=== PATIENT | female | born 1960 | race Asian ===

== ENCOUNTER 2025-10-23 22:04 | Inpatient (IN) | payer MEDICAID ==
[~2025-10-23] VITALS: Ht 152.4 cm; Wt 56.0 kg
[2025-10-23] MEDS: normal saline 1000ml 1,000 ML IV ONE ×2 (22:20→23:36)
[2025-10-23] MEDS: morphine 4 MG/ML inj SYRINge IV ONE (22:20)
[2025-10-23] MEDS: normal saline 1000ML IV soln IVB ONE ×3 (22:31→23:33)
--- NOTE | 2025-10-23 22:34 | ELECTROCARDIOGRAPH REPORT ---
[facility] Test Date: 2025-10-23 Test Time: 22:31:07 Pat Name: ALFREDO CORREA Department: [facility]- Patient ID: [facility]-[id number] Room: Gender: F Special Certificate Dictator: RACHEAL : 1960 Requested By: LUKAS HDEZ Order Number: [id number] Reading MD: Dr. Lukas Hdez Measurements Intervals [place] Rate: 69 P: 0 MS: 0 QRS: 59 QRSD: 89 T: 71 QT: 490 QTc: 525 Interpretive Statements Atrial fibrillation RSR' in V1 or V2, probably normal variant Nonspecific T abnrm, anterolateral leads Baseline wander in lead(s) V1 Electronically Signed On 10-24-2025 0:11:[address] Lukas Hdez Please click the below link to view image of tracing.
[2025-10-23 22:37] LABS: MEAN PLATELET VOLUME 9.7 FL (7.4-10.4); RED CELL DISTRIBUTION WIDTH 14.2 % (11.5-14.5)
[2025-10-23 22:38] LABS: APTT 22 SECONDS (22-32); INR 1.0 INR
[2025-10-23 22:40] LABS: CREATININE 1.24 MG/DL (0.40-0.90); TOTAL CARBON DIOXIDE 23.5 MMOL/L (24-32); eCRCL 33 ML/MIN; eGFR 44 ML/MIN
[2025-10-23 22:48] LABS: PRO BRAIN NATRIURETIC PEPTIDE < 30 PG/ML (0-125)
[2025-10-23] MEDS: pantoprazole 40MG/NS 100ML BAG 100 ML IV ONE (22:50)
[2025-10-23] MEDS ORDERED: pantoprazole 40mg IV 80 MG in normal saline 100ml IV soln 100 ML IV ONE (22:55)
--- NOTE | 2025-10-23 23:03 | RADIOLOGY REPORT ---
EXAM: DI CHEST,SINGLE VIEW CLINICAL HISTORY: CP TECHNIQUE: Single AP view of the chest WID: COMPARISON: None FINDINGS: Lines and tubes: None Chest: Mild cardiomegaly with mild prominence of the central pulmonary vasculature. Calcified plaque projects Over the aortic arch. No pleural effusion, pneumothorax, or consolidation. The osseous structures are grossly intact. Mild multilevel thoracic spondylosis. IMPRESSION: 1. Mild cardiomegaly with mild prominence of the central pulmonary vasculature.
[2025-10-23 23:04] LABS: LYMPHOCYTES % (MANUAL) 44.0 % (21-51); MONOCYTES % (MANUAL) 7.0 % (2-12); NEUTROPHILS % (MANUAL) 49.0 % (42-75); PLATELET ESTIMATE NORMAL
[2025-10-23] MEDS: piperacillin/tazo 3.375gm/50ml 50 ML IV ONE (23:36)
--- NOTE | 2025-10-23 23:51 | ELECTROCARDIOGRAPH REPORT ---
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 Lukas Hdez Measurements Intervals [place] Rate: 67 P: 62 MO: 66 QRS: 54 QRSD: 81 T: 105 QT: 407 QTc: 430 Interpretive Statements STEMI Electronically Signed On 10-24-2025 0:11:[address] Lukas Hdez Please click the below link to view image of tracing.
[2025-10-23] MEDS ORDERED: heparin 10,000 units/1 ML INJ IV PRN (23:55)
[2025-10-24] VITALS (16 sets, daily range): BP systolic 95–145; BP diastolic 39–67; PULSE 61–78; RESP 10–22; TEMP 97.4–98.6; O2SAT 95–100
[2025-10-24] MEDS: heparin 10,000 units/1 ML INJ IV ONE ×2 (00:03→00:10)
--- NOTE | 2025-10-24 00:06 | RADIOLOGY REPORT ---
Procedure: CT CTA AORTA DISECTION W/ IV CONTRAST HISTORY: abdominal pain, OK, Comparison Study: None Exam Date:10/23/2025 11:08 PM TECHNIQUE: CTA scanner volumetric data acquisition of abdomen and pelvis was obtained following intravenous administration of intravenous contrast without any reported adverse effects. Axial images were reconstructed and additional sagittal and coronal images were reformatted. arterial phase imaging were performed. Postprocessing was also performed on a Separate workstation. 3D images were performed on a dedicated workstation and reviewed for reporting. Radiation Dose : CT Dose: CTDI volume is 21.67 mGy. Dose-length product is 1465.44 mGy*cm FINDINGS: VASCULAR FINDINGS Thoracic and abdominal aorta normal in diameter. no aneurysm. no dissection. moderate aortoiliac vascular calcifications. No clinically significant pulmonary embolus. Mesenteric vessel origins are widely patent. NONVASCULAR FINDINGS Mild multichamber cardiac enlargement. Coronary calcifications. No pleural or pericardial effusion. No adenopathy. Liver, spleen, pancreas, adrenal glands, and kidneys are unremarkable. Equivocal mild thickening of the descending and sigmoid colon. IMPRESSION: No acute aortic pathology. Suspected mild colitis of the descending and sigmoid colon. No ischemic changes.
[2025-10-24] MEDS: heparin 25,000 UNIT/250ml bag 250 ML IV PRN (00:13)
[2025-10-24] MEDS: MESSAGE TO NURSING IV ONE (00:15)
[2025-10-24] MEDS ORDERED: LIDOcaine 1% 30ml preserv. free vial ONE (00:21)
[2025-10-24] MEDS ORDERED: fentaNYL/PF 50MCG/1 ML 2ML syringe ONE (00:21)
[2025-10-24] MEDS ORDERED: midazolam 1 mg/ML 2ml injection ONE (00:21)
[2025-10-24] MEDS ORDERED: iohexol 350 MG/ML 50ML vial IV ONE ×2 (00:22→01:29)
[2025-10-24] MEDS ORDERED: tirofiban 12.5mg in NS 250mL 250 ML IV ONE (00:22)
--- NOTE | 2025-10-24 00:23 | Physician Documentation ---
History of Present Illness ~ Chief Complaint: Chest Pain Stated Complaint: DIZZINESS Time Seen by MD: 22:18 OK to notify your PCP?: Yes Source: patient, family, RN/MD, RN notes reviewed, old records Mode of Arrival: POV Exam Limitations: no limitations HPI This patient history obtained by who is communicating and translating for her. She apparently at 7:00 p.m. had a sudden change in behavior she was doing perfectly fine prior. Afterwards she became a bit diaphoretic complaining of stomach pain radiating to her neck and jaw felt heavy and numb. Be patient did not get better family finally decided to come in where she arrives pale diaphoretic trouble maintaining her posture with no new complaints no shortness of breath no palpitations no chest pain. Patient was immediately brought into bed two where she was resuscitated. The patient presents with bradycardia and hypotension looks ill no other information is obtained Day of Onset: Oct 24, 2025 Medication Reconciliation Allergies: Coded Allergies: No Known Allergies (Unverified , 10/23/25) Past Medical History Past Medical History: Hypertension, Gastritis Past Surgical History: no surgical history Smoking Status: Never smoker Alcohol Use: None Drug Use: none Review of Systems All Other Systems at this time: Reviewed and Negative Physical Exam Vital Signs: RN Vital Signs have been reviewed: Yes, Temperature: 96.4, Source: Axillary, Heart Rate: 87, Respiratory Rate: 27, BP: 107/87, Pulse Oximetry: 98, Weight: 56.000 Oxygen Flow Rate: 2.0 Physical Exam General: The patient is well developed, well nourished, ill appearing and is in moderate acute distress. Pale diaphoretic Skin: [place], warm and dry with no rashes. HEENT: Head was normocephalic and atraumatic. Eyes - pupils equal, round, reactive to light and accommodation. Extraocular movements were intact. Conjunctivae were nonicteric. The mouth and oropharynx were clear with moist m ucous membranes. There were no pharyngeal exudates or erythema. Neck: Supple and nontender. There was no jugular venous distention, lymphadenopathy, thyromegaly or masses. Chest: Clear to auscultation bilaterally without wheezes, rales or rhonchi. No accessory muscle use. No dullness to percussion. Mottled skin Heart: Rate regular bradycardic and rhythmic. S1, S2. No murmurs. Palpation of the chest wall was normal. No rubs or thrills. Abdomen: Soft, diffusely tender and slightly distended. Positive bowel sounds. No guarding or rebound. No hepatosplenomegaly or palpable masses. Mottled skin Extremities: No cyanosis, clubbing or edema. The patient moves all extremities. Pulses were equal and symmetric. Mottled extremities weak palpabl e pulses Neurologic: Motor sensory grossly intact Psychologic: The patient was oriented to person, place and time. The patient demonstrated appropriate judgement and insight. Progress Results/Orders Reviewed/noted all lab results: Yes Results/Orders Orders - ELBERT HALLMAN MD Chest,Single View (10/23/25 22:27) Monitor (10/23/25 22:13) Saline Lock (10/23/25 22:13) Oxygen (10/23/25 22:13) Electrocardiogram (10/23/25 22:13) Hs Troponin I W Calculations (10/24/25 00:13) Hs Troponin I W Calculations (10/24/25 01:13) Type And Screen (10/23/25 22:18) Electrocardiogram (10/23/25 22:18) Normal Saline 1000ml (0.9% Sodium Chlori (10/23/25 22:20) Gastrocult Set Up (10/23/25 22:38) Hemocult Set Up (10/23/25 22:38) Pantoprazole 40mg/Ns 100ml Bag (Protonix (10/23/25 22:40) Culture Blood (10/23/25 22:49) Lrpc - Active Bleeding (10/23/25 22:51) Cta Aorta Disection (10/23/25 22:52) Normal Saline 1000ml (0.9% Sodium Chlori (10/23/25 23:15) Heparin 25,000 Unit/250ml Bag (Heparin 2 (10/23/25 23:55) Heparin 10,000 Unit/Ml 1ml (Heparin 10,0 (10/23/25 23:55) Page Hospitalist (10/24/25 00:12) Fill Out Med Reconciliation (10/24/25 00:12) Cardiac Ptt (10/24/25 06:30) Cbc/Diff (10/24/25 00:14) CMP (10/24/25 00:14) LA (10/24/25 00:14) Completed Orders - ELBERT HALLMAN MD Chest,Single View (10/23/25 22:27) Cbc/Diff (10/23/25 22:13) BMP (10/23/25 22:13) PBNP (10/23/25 22:13) Electrocardiogram (10/23/25 22:13) Hs Troponin I W Calculations (10/23/25 22:13) Pt Inr (10/23/25 22:18) PTT (10/23/25 22:18) Electrocardiogram (10/23/25 22:18) Aspirin 81mg Chew Tablet (Aspirin 81mg C (10/23/25 22:20) Morphine 4mg/Ml Inj. (Morphine Inj.) (10/23/25 22:20) Nitroglycerin 0.2mg/Hour Patch (Nitro-Du (10/23/25 22:20) Normal Saline 1000ml (0.9% Sodium Chlori (10/23/25 22:20) ESR (10/23/25 22:23) Liver Panel (10/23/25 22:18) MG (10/23/25 22:18) C-Reactive Protein (10/23/25 22:18) Normal Saline 1000ml (0.9% Sodium Chlori (10/23/25 22:40) Man Diff (10/23/25 22:18) Procalcitonin (10/23/25 22:49) Lacticsepsis (10/23/25 22:49) Lipase (10/23/25 22:18) Cta Aorta Disection (10/23/25 22:52) Pantoprazole 40mg Iv (Protonix 40mg Iv) (10/23/25 23:05) Piperacillin/Tazo 3.375gm/50ml (Zosyn 3. (10/23/25 23:15) Normal Saline 1000ml (0.9% Sodium Chlori (10/23/25 23:15) Heparin 10,000 Unit/Ml 1ml (Heparin 10,0 (10/23/25 23:55) Heparin 10,000 Unit/Ml 1ml (Heparin 10,0 (10/24/25 00:10) Message To Nursing (10/24/25 00:15) Lidocaine 1% 30ml Vial (Xylocaine 1% Via (10/24/25 00:21) Fentanyl/Pf (Fentanyl 0.05 Mg/Ml Syringe (10/24/25 00:21) Midazolam 1 Mg/Ml 2ml Inj. (Versed 1 Mg/ (10/24/25 00:21) Iohexol 350mg/Ml 50ml Inj (Omnipaque 350 (10/24/25 00:22) Iohexol 350mg/Ml 100ml (Omnipaque 350mg/ (10/24/25 00:22) Heparin 1,000 Units/Ns 500ml (Heparin 1, (10/24/25 00:22) Tirofiban 12.5mg In Ns 250ml (Aggrastat (10/24/25 00:22) Medications Received in ER Medications (Trade) Dose Ordered Sig/Jessica Route PRN Reason Start Time Stop Time Status Last Admin Dose Admin (aspirin 81MG chew tablet) 324 mg ONCE ONCE PO 10/23/25 22:20 10/23/25 22:21 DC 10/23/25 22:37 324 MG (0.9% sodium chloride (NS) 1000ml IV soln) 500 ml ONCE ONCE IVB 10/23/25 22:20 10/23/25 22:21 DC 10/23/25 22:31 500 ML (0.9% sodium chloride (NS) 1000ml IV soln) 1,000 ml ONCE ONCE IVB 10/23/25 22:40 10/23/25 22:48 DC 10/23/25 22:53 1,000 ML Pantoprazole Sodium 100 ml @ 20 mls/hr ONCE ONCE IV 10/23/25 22:40 10/24/25 03:39 10/23/25 22:50 20 MLS/HR (Protonix 40mg IV) 80 mg ONCE ONCE IV 10/23/25 23:05 10/23/25 23:06 DC 10/23/25 23:04 80 MG Piperacillin/ Tazobactam/ Dextrose 50 ml @ 100 mls/hr ONCE ONCE IV 10/23/25 23:15 10/23/25 23:44 DC 10/23/25 23:36 100 MLS/HR (0.9% sodium chloride (NS) 1000ml IV soln) 1,000 ml ONCE ONCE IVB 10/23/25 23:15 10/23/25 23:23 DC 10/23/25 23:33 1,000 ML Sodium Chloride 1,000 ml @ 200 mls/hr Q5H ONCE IV 10/23/25 23:15 10/24/25 04:14 10/23/25 23:36 200 MLS/HR (heparin 10,000 unit/ml 1ml inj) 3,000 units ONCE ONCE IV 10/23/25 23:55 10/23/25 23:57 DC 10/24/25 00:03 3,000 UNITS Heparin Sodium/ Dextrose 250 ml @ 7 mls/hr [id number] PRN IV TO MAINTAIN PTT WITHIN RANGE 10/23/25 23:55 10/24/25 00:13 7 MLS/HR Vital Signs 10/23/25 10/23/25 10/23/25 10/23/25 22:11 22:34 23:29 23:42 Temp 97.4 96.4 Pulse 98 86 52 87 Resp 22 22 23 27 B/P (MAP) 97/60 93/59 (70) 105/41 (62) 107/87 (94) Pulse Ox 95 94 94 98 O2 Flow Rate 0 15.0 2.0 2.0 10/24/25 00:25 Pulse 95 Resp 24 B/P (MAP) 125/73 (90) Pulse Ox 97 O2 Flow Rate 4.0 Laboratory Tests Test 10/23/25 22:18 10/23/25 22:30 White Blood Count 15.3 H Red Blood Count 4.25 Hemoglobin 11.7 L Hematocrit 35.8 Mean Corpuscular Volume 84.4 Mean Corpuscular Hemoglobin 27.6 Mean Corpuscular Hemoglobin Concent 32.6 L Red Cell Distribution Width 14.2 Platelet Count 251 Mean Platelet Volume 9.7 Neutrophils (%) (Auto) 41.5 L Lymphocytes (%) (Auto) 52.3 H Monocytes (%) (Auto) 4.8 Eosinophils (%) (Auto) 1.0 Basophils (%) (Auto) 0.4 Neutrophils # (Auto) 6.3 Lymphocytes # (Auto) 8.0 H Monocytes # (Auto) 0.7 Eosinophils # (Auto) 0.2 Basophils # (Auto) 0.1 CBC Comment Differential Total Cells Counted 100 Neutrophils % (Manual) 49.0 Lymphocytes % (Manual) 44.0 Monocytes % (Manual) 7.0 Platelet Estimate Normal Red Blood Cell Morphology Normal Basophilic Stippling Prothrombin Time 10.5 INR International Normalized Ratio 1.0 Activated Partial Thromboplast Time 22 Coagulation Comments Sodium Level 141 Potassium Level 3.6 Chloride Level 103 Carbon Dioxide Level 23.5 L Anion Gap 15 Blood Urea Nitrogen 18 Creatinine 1.24 H Estimated GFR/1.73 m2 44 BUN/Creatinine Ratio 14.5 Glucose Level 239 H Lactic Acid Level 7.4 *H Calcium Level 8.3 L Magnesium Level 2.1 Total Bilirubin 0.5 Direct Bilirubin 0.1 Aspartate Amino Transf (AST/SGOT) 19 Alanine Aminotransferase (ALT/SGPT) 19 Alkaline Phosphatase 72 Troponin I High Sensitivity 14 C-Reactive Protein 0.12 Pro-B-Type Natriuretic Peptide < 30 Total Protein 7.5 Albumin 3.6 Globulin 3.9 Albumin/Globulin Ratio 0.9 L Lipase 41 Procalcitonin < 0.05 Chemistry Comments Erythrocyte Sedimentation Rate 21 Re-Evaluation Re-Evaluation : Re-Evaluation: Worsened, Improved, Unchanged Progress Patient was brought into room to was resuscitated. She had EKG findings 1. Consistent with an PR but not reaching STEMI criteria. Patient was given an aspirin but she appeared pale and was hypovolemic he was given fluid boluses. Her abdomen was distended which is new and tender so GI bleed as well as dissection was also considered. Patient received a CT angio after she was stabilized with fluid boluses. She was guaiac positive as well. Afterwards she returned 2nd EKG showed new onset AFib. The 1st EKG had AV disassociation and 1/3 degree block. Patient was appearing much better and received a 3rd EKG which unfortunately now was consistent with ST-elevation PR and a STEMI was called. The patient received fluid boluses because she has become hypotensive once again. Dr. Medina was consulted requested repeat labs including troponin. Information was provided. Stat UA Calderon was placed for request a Cardiology as well. Patient was complaining she feels like he has to have a bowel movement. Additional bolus was given because of now hypotensive as returning. Skin is getting mottled once again. clinical laboratory scientist crew then took her to the ER. Patient was prepped and shaved prior to going to the record label intern. Family's at the bedside presented to the family as well Continuous campus monitor interpretation shows bradycardia with AV dissociation later new onset AFib heart rate 60s, and normal sinus rhythm heart rate 70s, prior rhythms abnormal final rhythm normal my interpretation. Pulse oximetry monitor interpretation shows normal oxygenation at 96% room air, normal, my interpretation. Prior low oxygenation were thought to be due to cardiogenic shock EKG/XRAY/CT/US/VASC/MRI EKG #1: Additional Comment Ordering Physician: ELBERT HALLMAN MD Exam Name: ELECTROCARDIOGRAM Technologist: [facility] Test Date: 2025-10-23 Test Time: 23:47:54 Pat Name: [facility] Department: [facility] Patient ID: [facility]-[id number] Room: Gender: F Pin Puller: DT : 1960 Requested By: ELBERT HALLMAN Order Number: [id number] Reading MD: Dr. Elbert Hallman Measurements Intervals [place] Rate: 67 P: 62 MN: 66 QRS: 54 QRSD: 81 T: 105 QT: 407 QTc: 430 Interpretive Statements STEMI Electronically Signed On 10-24-2025 0:11:[address] Elbert Hallman Please click the below link to view image of tracing. EKG Date and Time:10/23/25 2347 EKG #2: Additional Comment [facility] Test Date: 2025-10-23 Test Time: 22:31:07 Pat Name: [facility] Department: [facility] Patient ID: [facility]-[id number] Room: Gender: F Pin Puller: DT : 1960 Requested By: ELBERT HALLMAN Order Number: [id number] Reading MD: Dr. Elbert Hallman Measurements Intervals [place] Rate: 69 P: 0 MN: 0 QRS: 59 QRSD: 89 T: 71 QT: 490 QTc: 525 Interpretive Statements Atrial fibrillation RSR' in V1 or V2, probably normal variant Nonspecific T abnrm, anterolateral leads Baseline wander in lead(s) V1 Electronically Signed On 10-24-2025 0:11:[address] Elbert Hallman Please click the below link to view image of tracing. EKG Date and Time:10/23/251 Chest X-Ray : Views: 1 VIEW Additional Comments EXAM: DI CHEST,SINGLE VIEW CLINICAL HISTORY: CP TECHNIQUE: Single AP view of the chest WID: COMPARISON: None FINDINGS: Lines and tubes: None Chest: Mild cardiomegaly with mild prominence of the central pulmonary vasculature. Calcified plaque projects Over the aortic arch. No pleural effusion, pneumothorax, or consolidation. The osseous structures are grossly intact. Mild multilevel thoracic spondylosis. IMPRESSION: 1. Mild cardiomegaly with mild prominence of the central pulmonary vasculature. Electronically Signed by:TERRI GRAY MD Date & Time: 10/23/252300 CT : With Contrast?: Yes Impression Procedure: CT CTA AORTA DISECTION W/ IV CONTRAST HISTORY: abdominal pain, PR, Comparison Study: None Exam Date:10/23/2025 11:08 PM TECHNIQUE: CTA scanner volumetric data acquisition of abdomen and pelvis was obtained following intravenous administration of intravenous contrast without any reported adverse effects. Axial images were reconstructed and additional sagittal and coronal images were reformatted. arterial phase imaging were performed. Postprocessing was also performed on a Separate workstation. 3D images were performed on a dedicated workstation and reviewed for reporting. Radiation Dose : CT Dose: CTDI volume is 21.67 mGy. Dose-length product is 1465.44 mGy*cm FINDINGS: VASCULAR FINDINGS Thoracic and abdominal aorta normal in diameter. no aneurysm. no dissection. moderate aortoiliac vascular calcifications. No clinically significant pulmonary embolus. Mesenteric vessel origins are widely patent. NONVASCULAR FINDINGS Mild multichamber cardiac enlargement. Coronary calcifications. No pleural or pericardial effusion. No adenopathy. Liver, spleen, pancreas, adrenal glands, and kidneys are unremarkable. Equivocal mild thickening of the descending and sigmoid colon. IMPRESSION: No acute aortic pathology. Suspected mild colitis of the descending and sigmoid colon. No ischemic changes. Electronically Signed by:GRAEME RAE MD Date & Time: 10/24/25 0003 Dictated by: GRAEME RAE MD Dictation date and time: 10/24/25 0003 Primary Care Provider: NO PRIMARY CARE PROVIDER cc: ELBERT HALLMAN MD ~ Heart Score: Heart Score Response (Comments) Value History Highly Suspicious [address]-Deviation 2 Age 45-64 1 Risk Factors 1 or 2 risk factors 1 Troponin Normal limit 0 Total 6 Medical Decision Making Additional information obtaine: old records Findings Cardiogenic shock versus septic shock versus hypovolemic shock were all considered as well as dissection Heart Score: 6 Differential Dx:Considerations: Include: angina, aortic dissection, chest wall pain, cholelithiasis, CHF, costochondritis, esophageal reflux/spasm, gastritis, herpes zoster, myocardial infarction, pericarditis, pleuritis, pancreatitis, pneumonia, pneumothorax, pulmonary embolus, other Departure Disposition: ADMITTED INPATIENT Admission Level of Care: Critcal Care Impression: Primary Impression: Cardiogenic shock Additional Impressions: STEMI (ST elevation myocardial infarction) Qualified Codes: I21.11 - ST elevation (STEMI) myocardial infarction involving right coronary artery Hemoccult positive Condition: Critical Referrals: NO PRIMARY CARE PROVIDER (PCP) Education Educated: Patient Educated regarding: diagnosis, treatment, prognosis, need for follow up, other Critical Care Note Total Time (mins): 65 Critical Care Note The very real possibility of a deterioration of this patient's condition required the highest level of my preparedness for sudden, emergent intervention. I provided critical care services, which included medication orders, frequent reevaluations of the patient's condition and response to treatment, ordering and reviewing test results, and discussing the case with various consultants. Excludes time spent performing separately billable procedures. The critical care time associated with the care of the patient was sixty-five Signature Scribe Signature: No scribed Attestation: The note accurately reflects work and decisions made by me.Elbert Hallman MD 10/24/25 01:01 ELBERT HALLMAN MD Oct 24, 2025 00:23
--- NOTE | 2025-10-24 00:47 | CONSULTATION REPORT ---
Cardiac Consultation Report Providers to CC ~ Subjective Subjective Cardiology consult: She was declared in acute HI after midnight. She has been having symptoms of inability to poop and having abdominal pain chest pain throat pain since 6:00 a.m.. She came to the emergency room retrospectively in hypovolemic shock and had resuscitation by Dr. gaines. CT of the abdomen was performed respiratory initial troponin at 10:00 p.m. was negative. She had lactic acid of 7.5. Presently her 3rd electrocardiogram shows an inferior wall HI complaining of throat and jaw pain. Her son is translating. She goes to [facility] and is on statins. No other medications are known. Took a half an hour to explain what is going on to the patient through living specialist and now she has agreed to undergo diagnostic heart catheterization with a view toward intervention. Objective Vitals Vital Signs Date Time Temp Pulse Resp B/P (MAP) Pulse Ox O2 Delivery O2 Flow Rate FiO2 10/24/25 00:25 95 24 125/73 (90) 97 4.0 10/23/25 22:34 96.4 Lab Results: 10/23/25 2218 10/23/25 2218 Objective Carotid no bruit chest clear to auscultation percussion abdomen active bowel sounds nontender protuberant. Pulses palpable. Radial pulses palpable. No edema. Ocular motion intact no nystagmus no tremor her speech sounds fluent. Coagulation Studies Laboratory Tests Test 10/23/25 22:18 Prothrombin Time 10.5 SECONDS (9.0-12.0) INR International Normalized Ratio 1.0 INR Activated Partial Thromboplast Time 22 SECONDS (22-32) Coagulation Comments Problem\Assessment\Plan Additional Plan Impression 1. Inferior wall myocardial infarction with atypical presenting symptoms requiring several hours to make a diagnosis while she was receiving fluid resuscitation and other investigations. Recommendation: Diagnostic heart catheterization with intervention. Risks include and not restricted to stroke myocardial infarction she is already experiencing renal failure neurologic vascular complications bleeding complications allergic reaction. Has agreed to proceed son lesley. RICHIE BAEZ MD Oct 24, 2025 00:47
[2025-10-24] MEDS ORDERED: phenylephrine 10mg/ml inj. ONE (01:10)
[2025-10-24] MEDS ORDERED: atropine 0.1mg/ml 10ml syringe ONE (01:23)
--- NOTE | 2025-10-24 02:28 | PROGRESS NOTE ---
Progress Note Cardiology Providers to CC ~ Subjective Subjective Cardiology progress note: Diagnosis 1. inferior wall IA shock 2. Stool guaiac positive family history of patient needed to take antacid 3. Abnormal white blood count 4. Nonadherent not taking her statin medication 1. Normal left ventriculogram 2. 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 Medication noted. Left anterior descending left circumflex or smooth. 3.100 % right coronary artery PTCA stent residual narrowing 0. Recommendation heparin until 6:00 a.m. then discontinue Aggrastat until 8:00 a.m. the discontinue Brilinta to be given in ICU now Start metoprolol succinate extended release 25 mg q.a.m. statins as per guideline directed therapy aspirin 81 mg daily. Brilinta 180 mg p.o. b.i.d.. : Other: Family states that she used to take antacids however she never completed an upper GI. Endoscopy. She needs that prior to discharge. Especially as she already has a positive stool guaiac in her presenting hemoglobin prior to rehydration was 11.5. Stenosis is still guarded. 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 Objective Result Diagram: 10/23/25221710/23/252217 Coagulation Studies Laboratory Tests Test 10/23/25 22:18 Prothrombin Time 10.5 SECONDS (9.0-12.0) INR International Normalized Ratio 1.0 INR Activated Partial Thromboplast Time 22 SECONDS (22-32) Coagulation Comments RICHIE BAEZ MD Oct 24, 2025 02:28
--- NOTE | 2025-10-24 02:50 | HISTORY AND PHYSICAL ---
History of Present Illness End CC ~ Admission Diagnosis:.: STEMI History of Present Illness 65 year old female admitted with chest pain found to have a STEMI. She is now s/p stent to the RCA which was 100% occluded. Her LV function was withinnormal limits. In the ICU she is comfortable and access with no bleeding. Allergies: Coded Allergies: No Known Allergies (Unverified , 10/23/25) Past Medical History Past Medical History: Hypertension, Gastritis Past Surgical History Past Surgical History: no surgical history Past Social History Alcohol Use: None Drug Use: None Advance Care Planning Advanced Care planning: N/A Review of Systems All Other Systems at this time: Reviewed and Negative Physical Exam Last Vital Signs recorded: Temperature: 96.4, Source: Temporal, Heart Rate: 78, Respiratory Rate: 22, BP: 145/56, Pulse Oximetry: 100, Weight: 56.000 Results Diagram Lab Result Diagram: 10/23/25221710/23/252217 Assessment/Plan Additional Plan Plan: heparin infusion, aggrastat and then brillinta per cardiology start statin now start metoprolol Official ECHO PPI daily GI for possible EGD mIVF CCT 59 min using HIPPA compliant A/V technology PELON PABLO MD Oct 24, 2025 02:50
[2025-10-24] MEDS ORDERED: HYDROcodone/acetaminophen 10/325mg tab PO PRN ×2 (02:55)
[2025-10-24] MEDS ORDERED: magnesium hydroxide 30ml (MOM) UD suspension PO PRN (02:55)
[2025-10-24] MEDS ORDERED: morphine 10mg/ml inj. IV PRN (02:55)
[2025-10-24] MEDS ORDERED: OXAZEpam 15mg capsule PO PRN (02:55)
[2025-10-24] MEDS ORDERED: morphine 4 MG/ML inj SYRINge IV PRN (03:00)
[2025-10-24] MEDS: normal saline 1000ml 1,000 ML IV SCH (03:17)
[2025-10-24] MEDS: tirofiban 12.5mg in NS 250mL 250 ML IV SCH (03:17)
[2025-10-24 03:20] LABS: CHOL/HDL RATIO 3.2 (0.00-4.99); CREATININE 0.82 MG/DL (0.40-0.90); LDL CHOLESTEROL 138 MG/DL (50-100); TOTAL CARBON DIOXIDE 22.8 MMOL/L (24-32); eCRCL 50 ML/MIN; eGFR 70 ML/MIN
[2025-10-24 03:46] LABS: OCCULT BLOOD STOOL POSITIVE (Neg)
[2025-10-24 04:16] LABS: MEAN PLATELET VOLUME 9.8 FL (7.4-10.4); RED CELL DISTRIBUTION WIDTH 13.8 % (11.5-14.5)
[2025-10-24] MEDS: COMMUNICATION ORDER 1 EA MISC MC ONE (05:37)
--- NOTE | 2025-10-24 07:07 | ELECTROCARDIOGRAPH REPORT ---
[facility] Test Date: 2025-10-24 Test Time: 07:05:43 Pat Name: ALFREDO CORREA Department: [facility] 2S Room: [place] [address] Gender: F Certified Flight Instructor: GADIEL : 1960 Requested By: RICHIE BAEZ Order Number: [id number] Reading MD: Dr. Tomasz Gonzalez Measurements Intervals [place] Rate: 73 P: 31 AR: 140 QRS: 53 QRSD: 77 T: 32 QT: 400 QTc: 441 Interpretive Statements Sinus rhythm Non-specific T-wave changes Electronically Signed On 10-24-2025 13:25:[address] Tomasz Gonzalez Please click the below link to view image of tracing.
[2025-10-24] MEDS: docusate sod 100mg capsule PO SCH (07:36)
[2025-10-24] MEDS: metoprolol succinate 25mg (24-HOUR) SR. Tablet PO SCH (07:37)
[2025-10-24] MEDS ORDERED: heparin, porcine-25,000 units/D5-250ml premix IV ONE (08:00)
[2025-10-24] MEDS ORDERED: heparin 10,000 units/1 ML INJ ONE (08:00)
[2025-10-24] MEDS ORDERED: CHOL500050 PO (10:16)
[2025-10-24] MEDS ORDERED: LISI20TA28 PO (10:16)
[2025-10-24] MEDS ORDERED: ATOR40TA72 PO (10:16)
--- NOTE | 2025-10-24 17:45 | CONSULTATION REPORT - RESIDENT ---
Consult Providers to CC Resident Creating Document: XOCHITL ENCINASHERSON History of Present Illness Reason for Admit\Complaint: KS History of Present Illness The patient is a 65-year-old female with past medical history of hypertension presented to ED for altered mental status. Apparently at 7:00 p.m. yesterday, the patient had a sudden change in behavior and later became diaphoretic, complained of abdominal pain radiating to her neck and jaw. Therefore she was brought to the hospital by her family. In the ED, the patient was treated for hypovolemic shock by the ED. He received a total of 3 L of IV fluids and also received antibiotics. Her initial WBC count was 15.3. Her troponin was within normal limits. As the patient complained of chest pain, the patient received loading dose of aspirin and was started on heparin drip. Her 3rd EKG showed findings of inferior wall [place]. Cardiology was consulted and the patient was taken for cardiac catheterization with stent placement to right coronary artery. Allergies: Coded Allergies: No Known Allergies (Unverified , 10/23/25) Home Medications Home Medications Active Reported Atorvastatin Calcium 40 Mg Tablet 1 Tab PO DAILY Lisinopril 20 Mg Tablet 1 Tab PO DAILY Vitamin D3 (Cholecalciferol (Vitamin D3)) 125 Mcg (5000 Unit) Capsule 1 Cap PO DAILY Past Medical History Past Medical History Hypertension Gastritis Past Surgical History Surgical History Comment None Past Social History Social History Comment The patient lives with her . Independent with ADLs. ROS ROS Unable to obtain because of patient's limited south korean proficiency Exam Vitals: Vital Signs Date Time Temp Pulse Resp B/P (MAP) Pulse Ox O2 Delivery O2 Flow Rate FiO2 10/24/25 15:00 97.4 65 15 109/58 (75) 98 Room Air 10/24/25 00:25 4.0 General: Elderly female, awake and alert, not in acute distress Head: Normocephalic with an atraumatic Eyes: Pupils- 3mm, reacting to light, conjunctiva- anicteric Nose and throat: No polyps, septum- normal, no mucosal ulcers Neck: Supple, no lymphadenopathy, no carotid bruit Respiratory: No use of accessory muscles of respiration, Bilateral normal vesicular breath sounds heard. No wheeze, rhochi or creps Cardiac: S1-S2 heard, rythm regular, no gallop/murmur Abdomen: non distended, no tenderness, no organomegaly, bowel sounds - heard Extremities: no clubbing, no pedal edema, no deformities, peripheral pulses - 2+ Skin: warm and dry, no rash, no purpura Neuro: No focal deficit, gross cranial nerve exam - normal Diagnostic Data Last Recorded Lab Results: 10/24/25 0250 10/24/25 0250 Diagnostic Data: Laboratory Tests Test 10/23/25 22:18 Prothrombin Time 10.5 SECONDS (9.0-12.0) INR International Normalized Ratio 1.0 INR Activated Partial Thromboplast Time 22 SECONDS (22-32) Coagulation Comments Additional Plan Acute coronary syndrome Inferior wall [place] S/p RCA stenting Patient underwent stenting to right coronary artery this morning by Dr. Medina, traffic expert. Her lactic acid was elevated 7.4, and trended down to 2.4. She is currently on aspirin and Brilinta. Discontinued heparin drip and tirofiban drip. Continue metoprolol succinate 25 mg daily, atorvastatin 40 mg daily. LDL 138. Leukocytosis, resolved Likely reactive. Continue to monitor. Normocytic normochromic anemia Current hemoglobin 10.6, her fecal occult blood test was positive according to the ED. Continue to monitor H&H. Patient needs GI evaluation before discharge. Hypertension Continue lisinopril 20 mg daily. Code Status: Full code DVT Prophylaxis: Heparin Analgesia/Sedation: Tylenol, morphine Lines/Tubes: PIV GI Prophylaxis: Protonix Nutrition: Heart healthy diet PT: Ordered Prognosis: Guarded Disposition: Continue care in PCU. GI evaluation pending. Xochitl Encinas MD Internal Medicine Resident PGY-2 Date of Service: Oct 24, 2025 Billing Provider: JUAN R COYLE MD,XOCHITL WILL, RES Oct 24, 2025 17:45
[2025-10-24] MEDS: pantoprazole 40mg Tablet.DR PO ONE (19:29)
[2025-10-24] MEDS: heparin, porcine 5000 units/ml vial SQ SCH (20:22)
[2025-10-24] MEDS: HYDROcodone/acetaminophen 5mg/325mg tablet PO ONE (20:22)
--- NOTE | 2025-10-25 01:59 | CARDIOLOGY REPORT ---
DATE OF SERVICE: 10/24/2025 DICTATING PHYSICIAN: Darío Medina MD PROCEDURES: 1. Left heart catheterization. 2. Left ventriculography. 3. Ascending aortography. 4. Selected left and right coronary arteriography. 5. Right coronary PTCA. 6. Right coronary stent deployment. 7. Right iliofemoral arteriogram. 8. Conscious sedation 60 minutes. BRIEF HISTORY AND INDICATION: A 65-year-old hnp-Jibrwsx-hakcywkt or very limited Kosovan-speaking female came to the Emergency Room and it took a couple of hours to become clear after Emergency Room investigation and resuscitation of shock that she was having an inferior wall [place]. [place] was declared and she was transported to the [facility] for further evaluation. It took half an hour to explain to the family what is occurring to the patient. Accordingly, there were delays. Risks included, but not restricted to , stroke, myocardial infarction, renal failure, neurologic/vascular complications, bleeding complications, allergic reaction, emergency coronary bypass grafting and its attendant complications. TECHNIQUE: Following usual sterile preparation and draping the right groin was infiltrated with 10 mL of 1% lidocaine local anesthetic. Conscious sedation was achieved with 1 mg Versed, 25 mcg of fentanyl, and 25 mg Benadryl intravenously. The patient was maintained on oxygen 2 L per minute, normal saline 100 mL per hour. She had received a liter and a half of normal saline in the Emergency Room and had been placed on heparin at 700 units per hour. On arrival to the [facility] post sedation, draping, and infiltration of the right groin, a 6-Mongolian sheath was placed in the right femoral artery. Aggrastat was initiated by loading dose 25 mcg per kilogram, then 0.08 mcg per kilogram maintenance. Selected left and right coronary arteriography was performed. 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 It appears that the fistula gives rise to the left circumflex and left anterior descending. Right coronary angiography revealed a completely obstructed proximal right coronary. Finally, an internal mammary artery catheter guide was able to engage the right coronary for support. A PT2 wire was used to recanalize the completely obstructed right coronary followed by 2 mm x 12 Mini-Trek in overlapping inflation x3 of 10 atmospheres. Balloon was withdrawn and an [place] 2.25 mm x 30 mm stent was substituted and inflated to 10 atmospheres after placement. Repeat angiography was performed with wire catheter system removed. Left ventriculography was performed in right anterior oblique projection. Ascending aortography and left anterior oblique projection were performed. A 6-Mongolian straight pigtail catheter was used. Catheter exchanges were under fluoroscopic guidance with J-tip guidewire lead. A 230 mL of Omnipaque 350 contrast was administered. Fluoroscopy time was 13.2 minutes. Radiation exposure 9088 cGy/cm2. RESULTS: 1. Normal left ventriculogram, ejection fraction 66%. 2. 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 3. 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 This is a coronary anomaly. Fistula is calcific. Left circumflex and left anterior descending appear smooth. 4. Right coronary 100% obstructed. 5. Post intervention 0% stenosis, SWAPNA 3 flow. Pre-procedure SWAPNA 0. 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 She declined. She did not say she had any symptoms at least through family interpreters prior to this event. She is relatively inactive. She also had a positive stool guaiac. There is a history of having to require antacids; however, she never had an upper endoscopy. Prognosis is guarded. She will be kept on heparin and Aggrastat until Brilinta takes effect, then Angio-Seal will be performed. Darío Medina MD TID: [id number] RECEIPT: [id number] TR/NIVIA
[2025-10-25 02:00] VITALS: BP 101/53; PULSE 65; RESP 20; TEMP 98.3; O2SAT 98
[2025-10-25 05:45] LABS: MEAN PLATELET VOLUME 9.6 FL (7.4-10.4); RED CELL DISTRIBUTION WIDTH 14.0 % (11.5-14.5)
[2025-10-25 06:00] VITALS: BP 120/50; PULSE 84; RESP 21; TEMP 97.8; O2SAT 99
[2025-10-25 06:02] LABS: CREATININE 0.80 MG/DL (0.40-0.90); PHOSPHORUS 2.8 MG/DL (2.3-4.5); TOTAL CARBON DIOXIDE 23.0 MMOL/L (24-32); eCRCL 52 ML/MIN; eGFR 72 ML/MIN
[2025-10-25] MEDS: pantoprazole 40mg Tablet.DR PO SCH (07:22)
--- NOTE | 2025-10-25 10:09 | PROGRESS NOTE ---
Daily Progress Note Providers to CC ~ Antibiotic Timeout Antibiotic Ordered?: No Subjective None new Objective Vital Signs Date Time Temp Pulse Resp B/P (MAP) Pulse Ox O2 Delivery O2 Flow Rate FiO2 10/25/25 06:00 97.8 84 21 120/50 (73) 99 Room Air 10/24/25 00:25 4.0 Result Diagram: 10/25/25 0456 10/25/25 0456 Awake alert oriented in NAD HEENT normocephalic atraumatic Neck supple, no JVD Chest CTA ,No wheezes crackles or rhonchi Heart RRR, No murmur gallop or rub Abdomen soft , nontender, no organomegaly Extremities No C/C/E Coagulation Studies Laboratory Tests Test 10/23/25 22:18 Prothrombin Time 10.5 SECONDS (9.0-12.0) INR International Normalized Ratio 1.0 INR Activated Partial Thromboplast Time 22 SECONDS (22-32) Coagulation Comments Other Results Medications reviewed Problem\Assessment\Plan Inferior wall [place] : DC Home Date of Service: Oct 25, 2025 Billing Provider: RENATO CORBIN MD Common Visit Codes: 90969-QKB/OBS DISCH DAY >30min RENATO CORBIN MD Oct 25, 2025 10:09
[2025-10-25 10:58] VITALS: BP 119/51; PULSE 71; RESP 18; TEMP 97.4; O2SAT 100
--- NOTE | 2025-10-25 12:05 | PROGRESS NOTE ---
Progress Note Cardiology Providers to CC ~ Subjective Subjective Cardiology progress note: 1. Inferior wall [place] right coronary stent rescue procedure. 2. 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 The markedly tortuous looped fistula is calcific with areas of narrowing. Daughter is at bedside born in the [place] fluent in both languages. She explains the findings to the patient. Her questions were answered to her satisfaction. Has been present also. I explained to them that I would like to see her in the office in one month. Her right groin is well healed at this time peripheral pulses intact. Lungs are clear no murmur no rub. Dilatory asymptomatic. Medications diet activity and follow-up were discussed. He needs her beta karl aspirin Brilinta statins. Objective Result Diagram: 10/25/25 0456 10/25/25 0456 Coagulation Studies Laboratory Tests Test 10/23/25 22:18 Prothrombin Time 10.5 SECONDS (9.0-12.0) INR International Normalized Ratio 1.0 INR Activated Partial Thromboplast Time 22 SECONDS (22-32) Coagulation Comments RICHIE BAEZ MD Oct 25, 2025 12:04
[2025-10-25] MEDS ORDERED: PANT40TA54 PO (13:31)
[2025-10-25] MEDS ORDERED: METO-395 PO (13:31)
[2025-10-25] MEDS ORDERED: ASPI81TA53 PO (13:31)
[2025-10-25] MEDS ORDERED: TICA90TA PO (13:31)
[2025-10-25] MEDS ORDERED: NITR0.4T51 SL (13:31)
--- NOTE | 2025-10-25 13:56 | DISCHARGE SUMMARY ---
Discharge Summary Providers to CC ~ Discharge Summary Admission Diagnosis: STEMI Hospital Course DATE OF ADMISSION: 10/24/2025 DATE OF DISCHARGE:10/25/2025 Discharge Diagnosis\Comment: STEMI Operations\Procedures: Coronary angiogram Consultants: Dr. Medina Complications: None Condition on DC: Stable New Medications: Aspirin (Children's Aspirin) 81 Mg Tab.chew 81 MG PO DAILY for 30 Days, #30 TAB.CHEW Metoprolol Succinate (Metoprolol Succinate) 25 Mg Tab.sr.24h 25 MG PO DAILY for 30 Days, #30 TAB.SR Nitroglycerin SL* (Nitrostat SL*) 0.4 Mg Tablet 0.4 MG SL Q5MIN PRN for chest pain for 30 Days, #30 TAB Pantoprazole Sodium (Pantoprazole Sodium) 40 Mg Tablet.dr 40 MG PO BKF for 30 Days, #30 TAB.SR Ticagrelor (Brilinta) 90 Mg Tablet 90 MG PO BID for 30 Days, #60 TAB Continued Medications: Atorvastatin Calcium (Atorvastatin Calcium) 40 Mg Tablet 1 TAB PO DAILY Cholecalciferol (Vitamin D3) (Vitamin D3) 125 Mcg (5000 Unit) Capsule 1 CAP PO DAILY Lisinopril (Lisinopril) 20 Mg Tablet 1 TAB PO DAILY Discharge Summary: Reason for admission: 65 years old female admitted for evaluation of chest pain. Patient was found to have STEMI. Please refer to admission H&P for more details Hospital course: Patient was admitted on the monitored floor under hospital course as follows. # STEMI: Patient underwent coronary angiogram by Dr. Medina and stent to the RCA which was 100% occluded. Her LV function is within normal limits. Patient is being discharged on Aspirin and Brilinta # HTN Continued on lisinopril # GERD : Continued on Protonix # Hyperlipidemia; Continued on atorvastatin. Discharge day exam: I examined the patient on the day of discharge. Awake alert oriented in NAD HEENT normocephalic atraumatic Neck supple, no JVD Chest CTA ,No wheezes crackles or rhonchi Heart RRR, No murmur gallop or rub Abdomen soft , nontender, no organomegaly Extremities No C/C/E Disposition ; Home *Problems/Diagnosis: (1) STEMI (ST elevation myocardial infarction) Status: Acute Total Time Spent on D/C: > 30 Minutes Date of Service: Oct 25, 2025 Billing Provider: RENATO CORBIN MD Common Visit Codes: 91528-JNK/OBS DISCH DAY >30min Problem Qualifiers (1) STEMI (ST elevation myocardial infarction): Qualified Codes: I21.11 - ST elevation (STEMI) myocardial infarction involving right coronary artery RENATO CORBIN MD Oct 25, 2025 13:55
== END 2025-10-25 14:34 | disposition home or self-care (01) | DRG 174 ==
LOC: ER 22:05 → CICU 2S 10-24 01:44 → PCU 3S 10-24 11:59
PROVIDERS: ADMIT Internal Medicine; ATTEND Internal Medicine
PROC: B32T1ZZ Computerized Tomography (CT Scan) of Left Pulmonary Artery using Low Osmolar Contrast (ICD-10-PCS; 2025-10-23)
PROC: B3201ZZ Computerized Tomography (CT Scan) of Thoracic Aorta using Low Osmolar Contrast (ICD-10-PCS; 2025-10-23)
PROC: B32S1ZZ Computerized Tomography (CT Scan) of Right Pulmonary Artery using Low Osmolar Contrast (ICD-10-PCS; 2025-10-23)
PROC: B4201ZZ Computerized Tomography (CT Scan) of Abdominal Aorta using Low Osmolar Contrast (ICD-10-PCS; 2025-10-23)
PROC: B4241ZZ Computerized Tomography (CT Scan) of Superior Mesenteric Artery using Low Osmolar Contrast (ICD-10-PCS; 2025-10-23)
PROC: B4281ZZ Computerized Tomography (CT Scan) of Bilateral Renal Arteries using Low Osmolar Contrast (ICD-10-PCS; 2025-10-23)
PROC: B42C1ZZ Computerized Tomography (CT Scan) of Pelvic Arteries using Low Osmolar Contrast (ICD-10-PCS; 2025-10-23)
PROC: B42H1ZZ Computerized Tomography (CT Scan) of Bilateral Lower Extremity Arteries using Low Osmolar Contrast (ICD-10-PCS; 2025-10-23)
PROC: B4211ZZ Computerized Tomography (CT Scan) of Celiac Artery using Low Osmolar Contrast (ICD-10-PCS; 2025-10-23)
PROC: 027034Z Dilation of Coronary Artery, One Artery with Drug-eluting Intraluminal Device, Percutaneous Approach (ICD-10-PCS; principal; 2025-10-24)
PROC: 4A023N7 Measurement of Cardiac Sampling and Pressure, Left Heart, Percutaneous Approach (ICD-10-PCS; 2025-10-24)
PROC: B2111ZZ Fluoroscopy of Multiple Coronary Arteries using Low Osmolar Contrast (ICD-10-PCS; 2025-10-24)
PROC: B2151ZZ Fluoroscopy of Left Heart using Low Osmolar Contrast (ICD-10-PCS; 2025-10-24)
PROC: B3101ZZ Fluoroscopy of Thoracic Aorta using Low Osmolar Contrast (ICD-10-PCS; 2025-10-24)
DX: I21.19 ST elevation (STEMI) myocardial infarction involving other coronary artery of inferior wall (principal); R57.0 Cardiogenic shock; R57.1 Hypovolemic shock; I10 Essential (primary) hypertension; D64.9 Anemia, unspecified; E78.5 Hyperlipidemia, unspecified; I25.10 Atherosclerotic heart disease of native coronary artery without angina pectoris; K21.9 Gastro-esophageal reflux disease without esophagitis; I25.41 Coronary artery aneurysm; D72.829 Elevated white blood cell count, unspecified
CPT/HCPCS: 36415; 71045; 71275; 74174; 80048; 80053; 80061; 80076; 82272; 83036; 83605; 83690; 83735; 83880; 84100; 84145; 84484; 85007; 85025; 85610; 85651; 85730; 86140; 86885; 86900; 86901; 86920; 87040; 87081; 93005; 93458; 93567; 96365; 99152; 99153; 99291; A4314; A4615; A6258; A6449; C1725; C1751; C1760; C1769; C1874; C1894; C9600; C9606; G0378; J0461; J1200; J1644; J2003; J2250; J2371; J2470; J2543; J3010; J3246; J7030; Q9967